=== PATIENT | female | born 1935 | race Caucasian/White ===

== ENCOUNTER 2019-10-10 13:07 | Observation (INO) | payer MEDICARE, OTHER ==
--- NOTE | 2019-10-10 14:03 | XR ---
EXAMINATION TYPE: XR chest 2V DATE OF EXAM: 10/10/2019 COMPARISON: None INDICATION: Syncope TECHNIQUE: Frontal and lateral views of the chest are obtained. FINDINGS: The heart size is normal. The pulmonary vasculature is upper limits of normal. There may be some subtle blunting of the left costophrenic angle. Correlate for some subsegmental ate lectasis. Suspicious consolidation is not otherwise evident. IMPRESSION: 1. Minimal atelectasis may be at the left costophrenic angle.
--- NOTE | 2019-10-10 14:10 | CT ---
EXAMINATION TYPE: CT brain [facility] [place] [facility] DATE OF EXAM: 10/10/2019 COMPARISON: None HISTORY: Fall today with injury CT DLP: 1543 mGycm, Automated exposure control for dose reduction was used. CONTRAST: Patient injected with 0 mL of Isovue 300. CT of the brain is performed utilizing 3 mm thick sections through the posterior fossa and 3 mm thick sections through the remaining calvarium. Study is performed within 24 hours of arrival to the hospital. No abnormal hyperdensity is present to suggest an acute intracranial hemorrhage. No mass lesion is evident. No acute infarcts are evident. There is periventricular white matter hypodensity, likely on the basi s of chronic white matter ischemic changes. Ventricles and sulci are prominent for the patient age. Paranasal sinuses and mastoid air cells within the [id number] are clear. Nasal bone fracture or no tably on the right is not excluded. Correlate with location of the patient's pain. No additional area s suspicious for fracture is evident. Left septal deviation is noted. Some mild soft tissue swelling is present over the frontal region. IMPRESSIONS: 1. Atrophy with periventricular white matter ischemic changes. CT cervical spine. COMPARISON: None CT of the cervical spine is performed in the axial plane at 2 mm thick sections. Reconstructed image s in the coronal, and sagittal plane are reviewed on the computer. No acute fractures are evident. Very minimal grade 1 spondylolisthesis of C2 anteriorly on C3 may be present. There is a cervical kyp hosis centered at approximately C3-4. Loss of disc height is noted C3-4 C5-6 C6-7. Milder disc height loss is present C4-5 C7-T1 Vertebral body heights are preserved. No spinal canal stenosis is evident. Uncovertebral joint hypertrophy is contributing to moderate bilateral foraminal stenosis. Left forami nal stenosis from uncovertebral joint hypertrophy is present C5-6. Mild to moderate bilateral foramin al narrowing is present C6-7. IMPRESSIONS: 1. Degenerative disc changes cervical spine. 2. Cervical kyphosis. 3. Minimal spondylolisthesis of C2 anteriorly on C3. 4. Foraminal stenosis due to uncovertebral joint hypertrophy discussed above.
[2019-10-10 14:25] LABS: Glucose,Whole Blood 320 mg/dL (75-99)
[2019-10-10 14:26] LABS: Albumin 3.9 g/dL (3.5-5.0); Calcium 9.1 mg/dL (8.4-10.2); Potassium 4.7 mmol/L (3.5-5.1); Total Bilirubin 0.5 mg/dL (0.2-1.3); Total Protein 7.4 g/dL (6.3-8.2)
[2019-10-10 14:32] LABS: Basophils # (A) 0.1 k/uL (0-0.2); Basophils % (A) 1 %; Eosinophils # (A) 0.2 k/uL (0-0.7); Eosinophils % (A) 2 %; HCT 41.3 % (34.0-46.0); Lymphocytes # (A) 2.2 k/uL (1.0-4.8); Lymphocytes % (A) 25 %; MCHC 31.6 g/dL (31.0-37.0); Mean Platelet Volume 8.6; Monocytes # (A) 0.6 k/uL (0-1.0); Monocytes % (A) 6 %; Neutrophils # (A) 5.5 k/uL (1.3-7.7); Neutrophils % (A) 63 %; Platelet Count 187 k/uL (150-450); RBC 4.21 m/uL (3.80-5.40); RDW 12.2 % (11.5-15.5); WBC 8.7 k/uL (3.8-10.6)
[2019-10-10 14:55] LABS: Partial Thromboplastin Time 20.2 sec (22.0-30.0)
--- NOTE | 2019-10-10 15:07 | ED ---
Fall HPI - General Chief Complaint: Fall Stated Complaint: Syncope Time Seen by Provider: 10/10/19 13:22 Source: EMS Mode of arrival: EMS - History of Present Illness Initial Comments: 84-year-old female presenting today for chief complaint of syncope, head injury. Patient states that she was in her doctor's office and went to go to use the restroom and next thing she knows she woke up on the ground history of passed out, Patient states she hit her head. Denies blood thinners, headache or neck pain, denies chest pain or SOB, or any unusual symptoms. Patient states it was a routine appointment. Patient denies LE swelling, hemoptysis or visual changes. Patient daughter who took patient to the doctors office, heard the fall and patient was able to unlock the door in a matter of minutes, daughter denies confused staets, seizure activity or noting incontinence. Patient upon arrival has no complaints. Patient appears well and is very talkative and smiley. - Related Data Home Medications Medication Instructions Recorded Confirmed Aspirin 81 mg PO DAILY 04/17/14 10/10/19 Metoprolol Tartrate [Lopressor] 50 mg PO BID 04/17/14 10/10/19 Lovastatin [Mevacor] 40 mg PO HS 04/23/14 10/10/19 Omeprazole [PriLOSEC] 20 mg PO AC-BRKFST 04/23/14 10/10/19 Ammonium Lactate Lotion 1 applic TOPICAL Q48H 10/10/19 10/10/19 [Lac-Hydrin 12% Lotion] Cholecalciferol [Vitamin D3 (25 5,000 unit PO DAILY 10/10/19 10/10/19 Mcg = 1000 Iu)] Cyanocobalamin (Vitamin B-12) 1,000 mcg PO DAILY 10/10/19 10/10/19 [Vitamin B-12] Docusate [Colace] 100 mg PO DAILY 10/10/19 10/10/19 Flecainide [Tambocor] 50 mg PO Q12HR 10/10/19 10/10/19 Gabapentin 600 mg PO BID 10/10/19 10/10/19 Glimepiride [Amaryl] 2 mg PO BID 10/10/19 10/10/19 Psyllium Husk (with Sugar) 10 ml PO Q48H 10/10/19 10/10/19 [Metamucil Powder] Sertraline HCl [Zoloft] 25 mg PO DAILY 10/10/19 10/10/19 busPIRone HCL [Buspar] 7.5 mg PO QAM 10/10/19 10/10/19 metFORMIN HCL ER [Glucophage Xr] 500 mg PO HS 10/10/19 10/10/19 Allergies Allergy/AdvReac Type Severity Reaction Status Date / Time No Known Allergies Allergy Verified 10/10/19 14:47 Review of Systems ROS Statement: Those systems with pertinent positive or pertinent negative responses have been documented in the HPI. ROS Other: All systems not noted in ROS Statement are negative. Past Medical History Past Medical History: Diabetes Mellitus, Deep Vein Thrombosis (DVT), Hypertension Additional Past Medical History / Comment(s): BRAULIO LEGS NEUROPATHY, STATES PREVIOUS HX OF DVT BRAULIO LEGS History of Any Multi-Drug Resistant Organisms: None Reported Past Surgical History: Back Surgery, Hysterectomy Past Anesthesia/Blood Transfusion Reactions: No Reported Reaction Past Psychological History: Anxiety Smoking Status: Never smoker Past Alcohol Use History: None Reported Past Drug Use History: None Reported General Exam - General Exam Comments Initial Comments: General: The patient is awake and alert, in no distress Eye: +3 mm pupils are equal, round and reactive to light, extra-ocular movements are intact. No nystagmus. There is normal conjunctiva bilaterally. No signs of icterus. Ears, nose, mouth and throat: There are moist mucous membranes and no oral lesions. No racoon or kaminski sign. Neck: The neck is supple, there is no tenderness or JVD. N Cardiovascular: There is a regular rate and rhythm. No murmur, rub or gallop is appreciated. Respiratory: Lungs are clear to auscultation, respirations are non-labored, breath sounds are equal. No wheezes, stridor, rales, or rhonchi. Gastrointestinal: Soft, non-distended, non-tender abdomen without masses or organomegaly noted. There is no rebound or guarding present. No CVA tenderness. Musculoskeletal: Normal ROM, no tenderness. Strength 5/5. Sensation intact. Radial and DP pulses equal bilaterally 2+. Neurological: A&O x 3. CN II-XII intact, There are no obvious motor or sensory deficits. Coordination appears grossly intact. Speech is normal. Skin: Skin is warm and dry and no rashes. Frontal hematoma, no laceration. NO LE edema. No creptius to palpation of scalp. Psychiatric: Cooperative, appropriate mood & affect, normal judgment. Limitations: no limitations Course Vital Signs 10/10/19 10/10/19 10/10/19 13:17 15:26 16:00 Temperature 98.7 F 98.2 F Pulse Rate 70 68 68 Respiratory 18 96 H 20 Rate Blood Pressure 149/63 155/80 O2 Sat by Pulse 95 95 95 Oximetry 10/10/19 17:11 Temperature Pulse Rate 75 Respiratory 20 Rate Blood Pressure 150/67 O2 Sat by Pulse 98 Oximetry Medical Decision Making - Medical Decision Making Ventricular rate 72 bpm, NM interval 218 ms, QRS [id number] ms, QT/QTC 400/438 milliseconds. This is normal sinus with first-degree AV block noted. Low voltage QRS. No ST elevation or depression is noted. EKG personally interpreted and reviewed by mental any provider 84-year-old female presenting after a syncopal episodes and no complaints. Patient denies any abnormal symptoms prior to the syncopal episode. Patient has no abnormal focalizing examination findings aside from a hematoma on the frontal aspect of scalp. CT revealed no acute hemorrhage nor skull fracture. C-spine revealed degenerative changes no other acute findings. Patient glucose elevated otherwise labs stable. No significant derangements. EKG no acute findings, CXR no significant findings. Patient will admitted for further evaluation of syncope. Patient agreeable to admission. Discussed case wt DR Weeks who was agreeable to care plan. - Lab Data Result diagrams: 10/10/19 13:58 10/10/19 13:58 Lab Results 10/10/19 10/10/19 10/10/19 Range/Units 13:58 13:58 13:58 WBC 8.7 (3.8-10.6) k/uL RBC 4.21 (3.80-5.40) m/uL Hgb 13.0 (11.4-16.0) gm/dL Hct 41.3 (34.0-46.0) % MCV 98.0 (80.0-100.0) fL MCH 31.0 (25.0-35.0) pg MCHC 31.6 (31.0-37.0) g/dL RDW 12.2 (11.5-15.5) % Plt Count 187 (150-450) k/uL Neutrophils % 63 % Lymphocytes % 25 % Monocytes % 6 % Eosinophils % 2 % Basophils % 1 % Neutrophils # 5.5 (1.3-7.7) k/uL Lymphocytes # 2.2 (1.0-4.8) k/uL Monocytes # 0.6 (0-1.0) k/uL Eosinophils # 0.2 (0-0.7) k/uL Basophils # 0.1 (0-0.2) k/uL PT (9.0-12.0) sec INR (<1.2) APTT (22.0-30.0) sec Sodium 134 L (137-145) mmol/L Potassium 4.7 (3.5-5.1) mmol/L Chloride 98 (98-107) mmol/L Carbon Dioxide 31 H (22-30) mmol/L Anion Gap 5 mmol/L BUN 20 H (7-17) mg/dL Creatinine 0.89 (0.52-1.04) mg/dL Est GFR (CKD-EPI)AfAm 69 (>60 ml/min/1.73 sqM) Est GFR (CKD-EPI)NonAf 60 (>60 ml/min/1.73 sqM) Glucose 321 H (74-99) mg/dL POC Glucose (mg/dL) (75-99) mg/dL POC Glu Continuous Absorption Process Operator ID Calcium 9.1 (8.4-10.2) mg/dL Total Bilirubin 0.5 (0.2-1.3) mg/dL AST 29 (14-36) U/L ALT 19 (4-34) U/L Alkaline Phosphatase 86 (38-126) U/L Troponin I <0.012 (0.000-0.034) ng/mL Total Protein 7.4 (6.3-8.2) g/dL Albumin 3.9 (3.5-5.0) g/dL 10/10/19 10/10/19 Range/Units 14:01 14:12 WBC (3.8-10.6) k/uL RBC (3.80-5.40) m/uL Hgb (11.4-16.0) gm/dL Hct (34.0-46.0) % MCV (80.0-100.0) fL MCH (25.0-35.0) pg MCHC (31.0-37.0) g/dL RDW (11.5-15.5) % Plt Count (150-450) k/uL Neutrophils % % Lymphocytes % % Monocytes % % Eosinophils % % Basophils % % Neutrophils # (1.3-7.7) k/uL Lymphocytes # (1.0-4.8) k/uL Monocytes # (0-1.0) k/uL Eosinophils # (0-0.7) k/uL Basophils # (0-0.2) k/uL PT 10.0 (9.0-12.0) sec INR 1.0 (<1.2) APTT 20.2 L (22.0-30.0) sec Sodium (137-145) mmol/L Potassium (3.5-5.1) mmol/L Chloride (98-107) mmol/L Carbon Dioxide (22-30) mmol/L Anion Gap mmol/L BUN (7-17) mg/dL Creatinine (0.52-1.04) mg/dL Est GFR (CKD-EPI)AfAm (>60 ml/min/1.73 sqM) Est GFR (CKD-EPI)NonAf (>60 ml/min/1.73 sqM) Glucose (74-99) mg/dL POC Glucose (mg/dL) 320 H (75-99) mg/dL POC Glu Continuous Absorption Process Operator ID Sakshi Longo Calcium (8.4-10.2) mg/dL Total Bilirubin (0.2-1.3) mg/dL AST (14-36) U/L ALT (4-34) U/L Alkaline Phosphatase (38-126) U/L Troponin I (0.000-0.034) ng/mL Total Protein (6.3-8.2) g/dL Albumin (3.5-5.0) g/dL Disposition Clinical Impression: Fall, Scalp hematoma, Syncope Disposition: ADMITTED IP TO THIS [facility] Condition: Stable Is patient prescribed a controlled substance at d/c from ED?: No Time of Disposition: 15:06 Decision to Admit Reason: Admit from EC Decision Date: 10/10/19 Decision Time: 15:07
[2019-10-10] MEDS ORDERED: INSULIN REGULAR 100 UNIT/ML VIAL SQ ONE (15:33)
[2019-10-10] MEDS ORDERED: NALOXONE 0.4 MG/ML 1 ML VIAL IV PRN (16:16)
[2019-10-10] MEDS: SODIUM CHLORIDE 0.9% 1,000 ML IV SCH (17:08)
[2019-10-10 18:39] LABS: Glucose,Whole Blood 209 mg/dL (75-99)
[2019-10-10 19:44] LABS: Glucose,Whole Blood 179 mg/dL (75-99)
[2019-10-10] MEDS: METOPROLOL TARTRATE 50 MG TAB PO SCH (21:43)
[2019-10-10] MEDS: ATORVASTATIN 10 MG TAB PO SCH (21:43)
[2019-10-10] MEDS: traZODone HCL 50 MG TAB PO PRN (21:43)
[2019-10-10] MEDS: GLIMEPIRIDE 2 MG TAB PO SCH (21:43)
[2019-10-10] MEDS: FLECAINIDE 50 MG TAB PO SCH (21:43)
[2019-10-11 03:24] LABS: Cholesterol 238 mg/dL (<200); HDL Cholesterol 40 mg/dL (40-60)
[2019-10-11 03:33] LABS: Triglycerides 551 mg/dL (<150)
[2019-10-11] MEDS: SODIUM CHLORIDE 0.9% 1,000 ML IV SCH ×2 (04:15→16:19)
[2019-10-11 06:46] LABS: Glucose,Whole Blood 173 mg/dL (75-99)
[2019-10-11] MEDS: DOCUSATE 100 MG CAP PO SCH (08:30)
[2019-10-11] MEDS: METOPROLOL TARTRATE 50 MG TAB PO SCH ×2 (08:30→19:52)
[2019-10-11] MEDS: ASPIRIN 81 MG PO SCH (08:30)
[2019-10-11] MEDS: FLECAINIDE 50 MG TAB PO SCH ×2 (08:30→19:53)
[2019-10-11] MEDS: GLIMEPIRIDE 2 MG TAB PO SCH ×2 (08:31→19:53)
[2019-10-11] MEDS: LISINOPRIL 5 MG TAB PO SCH (08:31)
--- NOTE | 2019-10-11 09:24 | US ---
EXAMINATION TYPE: US carotid duplex BILAT DATE OF EXAM: 10/11/2019 COMPARISON: NONE CLINICAL HISTORY: syncope. Syncope, confusion EXAM MEASUREMENTS: RIGHT: Peak Systolic Velocity (PSV) cm/sec ----- Right CCA: 77.6 ----- Right ICA: 89.8 ----- Right ECA: 74.1 ICA/CCA ratio: 1.2 RIGHT: End Diastole cm/sec ----- Right CCA: 8.4 ----- Right ICA: 13.9 ----- Right ECA: 0.0 LEFT: Peak Systolic Velocity (PSV) cm/sec ----- Left CCA: 86.2 ----- Left ICA: 80.8 ----- Left ECA: 96.6 ICA/CCA ratio: 0.9 LEFT: End Diastole cm/sec ----- Left CCA: 8.3 ----- Left ICA: 15.3 ----- Left ECA: 0.0 VERTEBRALS (direction of flow): Right Vertebral: Antegrade Left Vertebral: Antegrade Rhythm: Normal No elevated velocities, no significant stenosis. IMPRESSION: I DO NOT SEE EVIDENCE OF A HEMODYNAMICALLY SIGNIFICANT STENOSIS IN EITHER CAROTID SYSTEM. Criteria for Assigning % of Stenosis / Diameter reduction (Estimation based on the indirect measurements of the internal carotid artery velocities (ICA PSV). 1. Normal (no stenosis)=ICA PSV < 125 cm/s: ratio < 2.0: ICA EDV<40 cm/s. 2. Less than 50% stenosis=ICA PSV < 125 cm/s: ratio < 2.0: ICA EDV<40 cm/s. 3. 50 to 69% stenosis=ICA PSV of 125 to 230 cm/s: ration 2.0 ? 4.0: ICA EDV 40-100 cm/s. 4. Greater than 70% stenosis to near occlusion= ICA PSV > 230 cm/s: ratio > 4.0: ICA EDV > 100 cm/s. 5. Near occlusion= ICA PSV velocities may be low or undetectable: variable ratio and ICA EDV. 6. Total occlusion=unable to detect flow.
--- NOTE | 2019-10-11 11:29 | P.CRDCN ---
History of Present Illness History of present illness: HISTORY OF PRESENTING ILLNESS This is a pleasant 84-year-old female past medical history significant for hypertension, dyslipidemia, diabetes mellitus, nonsustained ventricular tac hycardia maintained on flecainide, mild nonobstructive CAD and obesity. She follows in the office with Dr. Winter. We have been asked to see in consultation for syncope. The patient is confused at baseline and unable to recall the events that occurred yesterday information is obtained from the medical record and the nursing staff. Apparently the patient was at her physician's office yesterday and she went into use the restroom. Her daughter was standing outside the restroom and heard her fall. They were able to come in to the bathroom and she was unresponsive. She did spontaneously wake up. She did not have any chest pain, dizziness, palpitations, shortness of breath or dizziness that was verbalized at that time. EKG on arrival reveals sinus mechanism with first- degree AV block heart rate of 72. Telemetry tracings unremarkable with no acute arrhythmias noted. CT of the head reveals atrophy with periventricular white matter ischemic changes in no acute process. Bilateral carotid Doppler with no evidence of hemodynamically significant stenosis bilaterally. Laboratory data reviewed, cardiac enzymes negative 3, CBC unremarkable, sodium 134, potassium 4.7, creatinine 0.89, triglycerides 551. Currently maintained on aspirin 81 mg daily, metoprolol 50 mg twice a day, flecainide 50 mg twice a day and lovastatin 40 mg at bedtime. REVIEW OF SYSTEMS At the time of my exam: CONSTITUTIONAL: Denies fever or chills. CARDIOVASCULAR: Denies chest pain, shortness of breath, orthopnea, PND or palpitations. RESPIRATORY: Denies cough. GASTROINTESTINAL: Denies abdominal pain, diarrhea, constipation, nausea or vomiting. MUSCULOSKELETAL: Denies myalgias. NEUROLOGIC: Denies numbness, tingling or weakness. ENDOCRINE: Denies fatigue, weight change, polydipsia or polyurina. GENITOURINARY: Denies burning, hematuria or urgency with micturation. HEMATOLOGIC: Denies history of anemia or bleeding. PHYSICAL EXAMINATION Blood pressure 152/79 heart rate 75 afebrile and maintaining oxygen saturation on room air. CONSTITUTIONAL: No apparent distress. HEENT: Head is normocephalic. Pupils are equal, round. Sclerae anicteric. Mucous membranes of the mouth are moist. No JVD. No carotid bruit. CHEST EXAMINATION: Lungs are clear to auscultation. No chest wall tenderness is noted on palpation or with deep breathing. HEART EXAMINATION: Regular rate and rhythm. S1, S2 heard. No murmurs, gallops or rub. ABDOMEN: Soft, nontender. Positive bowel sounds. EXTREMITIES: 2+ peripheral pulses, no lower extremity edema and no calf tenderness. NEUROLOGIC EXAMINATION: Patient is awake, alert and oriented to self. ASSESSMENT Syncope History of ventricular tachycardia Hypertension Dyslipidemia Diabetes mellitus PLAN An acute coronary event has been ruled out. Obtain 2-D echocardiogram and Doppler study to assess cardiac structure and function. Initiate lisinopril 5 mg daily for optimal blood pressure control. Continue Lopressor and flecainide as previously ordered. Continue to monitor on telemetry for another 24 hours. Further recommendations to follow based upon clinical course. Thank you kindly for this consultation. Nurse Practitioner note has been reviewed, I agree with a documented findings and plan of care. Patient was seen and examined. Past Medical History Past Medical History: Diabetes Mellitus, Deep Vein Thrombosis (DVT), Hypertension Additional Past Medical History / Comment(s): BRAULIO LEGS NEUROPATHY, STATES PREVIOUS HX OF DVT BRAULIO LEGS History of Any Multi-Drug Resistant Organisms: None Reported Past Surgical History: Back Surgery, Hysterectomy Past Anesthesia/Blood Transfusion Reactions: No Reported Reaction Past Psychological History: No Psychological Hx Reported Smoking Status: Never smoker Past Alcohol Use History: None Reported Past Drug Use History: None Reported - Past Family History Father Family Medical History: Myocardial Infarction ([place]) Mother History Unknown: Yes Medications and Allergies Home Medications Medication Instructions Recorded Confirmed Type Aspirin 81 mg PO DAILY 04/17/14 10/10/19 History Metoprolol Tartrate [Lopressor] 50 mg PO BID 04/17/14 10/10/19 History Lovastatin [Mevacor] 40 mg PO HS 04/23/14 10/10/19 History Omeprazole [PriLOSEC] 20 mg PO AC-BRKFST 04/23/14 10/10/19 History Ammonium Lactate Lotion 1 applic TOPICAL Q48H 10/10/19 10/10/19 History [Lac-Hydrin 12% Lotion] Cholecalciferol [Vitamin D3 (25 5,000 unit PO DAILY 10/10/19 10/10/19 History Mcg = 1000 Iu)] Cyanocobalamin (Vitamin B-12) 1,000 mcg PO DAILY 10/10/19 10/10/19 History [Vitamin B-12] Docusate [Colace] 100 mg PO DAILY 10/10/19 10/10/19 History Flecainide [Tambocor] 50 mg PO Q12HR 10/10/19 10/10/19 History Gabapentin 600 mg PO BID 10/10/19 10/10/19 History Glimepiride [Amaryl] 2 mg PO BID 10/10/19 10/10/19 History Psyllium Husk (with Sugar) 10 ml PO Q48H 10/10/19 10/10/19 History [Metamucil Powder] Sertraline HCl [Zoloft] 25 mg PO DAILY 10/10/19 10/10/19 History busPIRone HCL [Buspar] 7.5 mg PO QAM 10/10/19 10/10/19 History metFORMIN HCL ER [Glucophage Xr] 500 mg PO HS 10/10/19 10/10/19 History Allergies Allergy/AdvReac Type Severity Reaction Status Date / Time No Known Allergies Allergy Verified 10/10/19 14:47 Physical Exam Vitals: Vital Signs Temp Pulse Pulse Resp BP BP Pulse Ox 10/11/19 07:20 98.0 F 75 18 152/79 92 L 10/11/19 04:00 98.2 F 72 18 176/77 96 10/11/19 03:40 69 18 10/11/19 00:00 69 18 10/10/19 23:44 69 18 145/73 98 10/10/19 20:00 77 17 10/10/19 19:27 97.5 F L 77 17 158/70 97 10/10/19 18:45 98.4 F 42 L 15 155/78 98 10/10/19 17:11 75 20 150/67 98 10/10/19 16:00 98.2 F 68 20 155/80 95 10/10/19 15:26 68 96 H 95 10/10/19 13:17 98.7 F 70 18 149/63 95 Intake and Output 10/10/19 10/11/19 10/11/19 22:59 06:59 14:59 Other: Voiding Method Toilet Toilet Diaper Diaper # Voids 1 3 # Bowel Movements 1 Weight 88.904 kg 91 kg Results 10/10/19 13:58 10/10/19 13:58 Cardiac Enzymes 10/10/19 10/10/19 10/10/19 Range/Units 13:58 13:58 20:00 AST 29 (14-36) U/L Troponin I <0.012 <0.012 (0.000-0.034) ng/mL 10/11/19 Range/Units 01:34 AST (14-36) U/L Troponin I <0.012 (0.000-0.034) ng/mL Coagulation 10/10/19 Range/Units 14:12 PT 10.0 (9.0-12.0) sec APTT 20.2 L (22.0-30.0) sec Lipids 10/10/19 Range/Units 13:58 Triglycerides 551 H (<150) mg/dL Cholesterol 238 H (<200) mg/dL HDL Cholesterol 40 (40-60) mg/dL CBC 10/10/19 Range/Units 13:58 WBC 8.7 (3.8-10.6) k/uL RBC 4.21 (3.80-5.40) m/uL Hgb 13.0 (11.4-16.0) gm/dL Hct 41.3 (34.0-46.0) % Plt Count 187 (150-450) k/uL Comprehensive Metabolic Panel 10/10/19 Range/Units 13:58 Sodium 134 L (137-145) mmol/L Potassium 4.7 (3.5-5.1) mmol/L Chloride 98 (98-107) mmol/L Carbon Dioxide 31 H (22-30) mmol/L BUN 20 H (7-17) mg/dL Creatinine 0.89 (0.52-1.04) mg/dL Glucose 321 H (74-99) mg/dL Calcium 9.1 (8.4-10.2) mg/dL AST 29 (14-36) U/L ALT 19 (4-34) U/L Alkaline Phosphatase 86 (38-126) U/L Total Protein 7.4 (6.3-8.2) g/dL Albumin 3.9 (3.5-5.0) g/dL Current Medications Generic Name Dose Route Start Last Admin Trade Name Freq PRN Reason Stop Dose Admin Aspirin 81 mg 10/11/19 09:00 Aspirin PO DAILY [facility] Atorvastatin Calcium 10 mg 10/10/19 21:00 10/10/19 21:43 Lipitor PO 10 mg HS JOSÉ MIGUEL Administration Docusate Sodium 100 mg 10/11/19 09:00 Colace PO DAILY [facility] Flecainide Acetate 50 mg 10/10/19 21:00 10/10/19 21:43 Tambocor PO 50 mg Q12HR JOSÉ MIGUEL Administration Glimepiride 2 mg 10/10/19 21:00 10/10/19 21:43 Amaryl PO 2 mg BID JOSÉ MIGUEL Administration Sodium Chloride 1,000 mls @ 75 mls/hr 10/10/19 15:45 10/11/19 04:15 Saline 0.9% IV Not Given .[id number] [facility] Lisinopril 5 mg 10/11/19 09:00 Zestril PO DAILY [facility] Metoprolol Tartrate 50 mg 10/10/19 21:00 10/10/19 21:43 Lopressor PO 50 mg BID JOSÉ MIGUEL Administration Naloxone HCl 0.2 mg 10/10/19 16:16 Narcan IV Q2M PRN Opioid Reversal Trazodone HCl 50 mg 10/10/19 21:04 10/10/19 21:43 Desyrel PO 50 mg HS PRN Administration SLEEP Intake and Output 10/10/19 10/11/19 10/11/19 22:59 06:59 14:59 Other: Voiding Method Toilet Toilet Diaper Diaper # Voids 1 3 # Bowel Movements 1 Weight 88.904 kg 91 kg 10/10/19 13:58 10/10/19 13:58
[2019-10-11 11:44] LABS: Glucose,Whole Blood 362 mg/dL (75-99)
[2019-10-11] MEDS: INSULIN ASPART (NovoLOG) 100 UNIT/ML VIAL SQ SCH ×3 (12:03→19:53)
--- NOTE | 2019-10-11 14:44 | ECHOF ---
Referral Reason:syncope MEASUREMENTS -------- HEIGHT: 170.2 cm WEIGHT: 90.7 kg BP: RVIDd: 3.7 cm (< 3.3) IVSd: 1.3 cm (0.6 - 1.1) LVIDd: 3.9 cm (3.9 - 5.3) LVPWd: 1.8 cm (0.6 - 1.1) IVSs: 1.6 cm LVIDs: 3.2 cm LVPWs: 1.0 cm LA Diam: 3.5 cm (2.7 - 3.8) LAESV Index (A-L): 25.99 ml/m Ao Diam: 3.5 cm (2.0 - 3.7) AV Cusp: 1.5 cm (1.5 - 2.6) LA Diam: 4.3 cm (2.7 - 3.8) MV EXCURSION: 18.395 mm (> 18.000) MV EF SLOPE: 68 mm/s (70 - 150) EPSS: 0.5 cm MV E Amos: 0.63 m/s MV DecT: 304 ms MV A Amos: 1.03 m/s MV E/A Ratio: 0.61 RAP: 5.00 mmHg RVSP: 40.86 mmHg FINDINGS -------- Sinus rhythm. This was a technically good study. The left ventricular size is normal. There is mild concentric left ventricular hypertrophy. Overa ll left ventricular systolic function is normal with, an EF between 55 - 60 %. The right ventricle is normal in size. The left atrial size is normal. The right atrial size is normal. There is mild aortic valve sclerosis without stenosis. There is no evidence of aortic regurgitation . Mild mitral regurgitation is present. Mild tricuspid regurgitation present. Right ventricular systolic pressure is normal at < 35 mmHg. There is mild pulmonary hypertension. There is no pulmonic regurgitation present. The aortic root size is normal. There is no pericardial effusion. CONCLUSIONS -------- 1. Sinus rhythm. 2. This was a technically good study. 3. The left ventricular size is normal. 4. Overall left ventricular systolic function is normal with, an EF between 55 - 60 %. 5. The right ventricle is normal in size. 6. The left atrial size is normal. 7. The right atrial size is normal. 8. There is mild aortic valve sclerosis without stenosis. 9. Mild mitral regurgitation is present. 10. Right ventricular systolic pressure is normal at < 35 mmHg. 11. There is no pulmonic regurgitation present. 12. The aortic root size is normal. 13. There is no pericardial effusion. MACHINE SETUP OPERATOR: Pretty Hall RDCS
[2019-10-11 15:26] LABS: Appearance,Urine Turbid (Clear); Bacteria,Urine Occasional /hpf; Bilirubin,Urine Negative (Negative); Blood,Urine Small (Negative); Color,Urine Yellow; Glucose,Urine (UA) 4+ (Negative); Ketones,Urine Trace (Negative); Leukocyte Esterase,Urine Negative (Negative); Mucus,Urine Few /hpf; Nitrite,Urine Positive (Negative); Protein,Urine Trace (Negative); RBC,Urine 8 /hpf (0-5); Squamous Epithelial Cell,Urine 1 /hpf (0-4); Urobilinogen,Urine <2.0 mg/dL (<2.0); WBC,Urine >182 /hpf (0-5)
[2019-10-11 16:38] LABS: Glucose,Whole Blood 215 mg/dL (75-99)
[2019-10-11 19:49] LABS: Glucose,Whole Blood 240 mg/dL (75-99)
[2019-10-11] MEDS: SULFAMETHOX-TMP 800-160MG 1 EACH TAB PO SCH (19:52)
[2019-10-11] MEDS: ATORVASTATIN 10 MG TAB PO SCH (19:53)
[2019-10-11] MEDS: traZODone HCL 50 MG TAB PO PRN (20:16)
--- NOTE | 2019-10-12 00:34 | HP ---
HISTORY AND PHYSICAL CHIEF COMPLAINT: Syncopal episode. HISTORY OF PRESENT ILLNESS: This is apparently another admission for this 84-year-old white female. She cannot give a history. She apparently had a syncopal event. She does not remember it and she does not remember feeling unusual before it started or having any chest pain, diaphoresis, shortness of breath, pain, confusion, focal neurologic deficits, etc. She apparently has a history of cardiac disease with ventricular tachycardia. She denies any shortness of breath, orthopnea, PND, etc. REVIEW OF SYSTEMS: Review of systems cannot be reliably obtained. Past medical history, family history and personal and social histories similarly are not reliably obtained. She does have a history of diabetes. She has a history of hyperlipidemia with triglycerides of 551. She is not allergic to any medication. She has had a hysterectomy. Other surgeries are not known. MEDICATIONS: Medications include BuSpar, vitamin D3, gabapentin, Prilosec, Zoloft, aspirin, metformin, Amaryl, lovastatin, Lopressor, Flecainide. She does not does not smoke or drink. PHYSICAL EXAMINATION: Blood pressure is 142/73 with a pulse of 86 and regular, respirations of 20 and she is afebrile. In general, she appeared to be well developed, well nourished, no acute distress. Skin color is normal. Skin is warm, dry. Lymph nodes not enlarged. Head, ears, eyes, nose, mouth and throat were normal and carotids normal. Neck veins not distended. Chest is clear. Cardiac exam demonstrated normal sinus rhythm with no murmurs or extra sounds. The abdomen was soft and nontender and there is no visceromegaly or masses. Bowel sounds present. Extremities are normal and neurologically she was intact except she had some difficulty answering questions and it was assumed that she has dementia. IMPRESSION: She is admitted to the hospital with diagnoses of: 1. Syncope, etiology unknown. 2. History of ventricular tachycardia. 3. Diabetes. 4. Dementia. 5. Urinary tract infection. PLAN: 1. Bed rest. 2. IV fluids. 3. Telemetry. 4. Consult Cardiology. 5. Monitor blood sugars as well as blood pressure. MMODL / IJN: [id number] /
--- NOTE | 2019-10-12 01:04 | PN ---
PROGRESS NOTE CHIEF COMPLAINT: Syncopal episode. HISTORY OF PRESENT ILLNESS: This lady is having no further problems at this time. She remains slightly confused. She does not have any chest pain, arrhythmias, fluctuations of her blood pressure, etc. She does have a urinary tract infection according to the lab. Blood sugars are also elevated. PHYSICAL EXAMINATION: Chest is clear. The cardiac exam is normal sinus rhythm. Abdomen is soft, nontender. Extremities are normal. IMPRESSION: 1. Syncope, etiology unknown. 2. History of ventricular tachycardia. 3. Uncontrolled diabetes. 4. Urinary tract infection. PLAN: 1. Bactrim DS for urinary tract infection. 2. Await any further recommendations from Cardiology. 3. Increase activity. MMODL / IJN: [id number] /
[2019-10-12 06:37] LABS: Glucose,Whole Blood 175 mg/dL (75-99)
[2019-10-12 07:45] VITALS: RESP 18
[2019-10-12] MEDS: SULFAMETHOX-TMP 800-160MG 1 EACH TAB PO SCH (08:05)
[2019-10-12] MEDS: INSULIN ASPART (NovoLOG) 100 UNIT/ML VIAL SQ SCH ×2 (08:05→11:55)
[2019-10-12] MEDS: GLIMEPIRIDE 2 MG TAB PO SCH (08:05)
[2019-10-12] MEDS: DOCUSATE 100 MG CAP PO SCH (08:05)
[2019-10-12] MEDS: METOPROLOL TARTRATE 50 MG TAB PO SCH (08:06)
[2019-10-12] MEDS: LISINOPRIL 5 MG TAB PO SCH (08:06)
[2019-10-12] MEDS: ASPIRIN 81 MG PO SCH (08:06)
[2019-10-12] MEDS: FLECAINIDE 50 MG TAB PO SCH (08:06)
--- NOTE | 2019-10-12 08:53 | PN ---
PROGRESS NOTE Mrs Suh is in sinus rhythm, resting comfortably. She has no chest pain or shortness of breath. Vitals are stable. No further episodes of syncope or near syncope. No arrhythmia on the monitor. No JVD or carotid bruit. S1-S2 heard normally. Short systolic murmur noted. Lungs revealed decent air entry. Abdomen and lower extremity exam are unchanged. Plan is to increase activity and discharge her and she can be seen as an outpatient in the next 2 weeks. MMODL / IJN: [id number] /
[2019-10-12] MEDS: SODIUM CHLORIDE 0.9% 1,000 ML IV SCH (10:19)
[2019-10-12 11:02] VITALS: BP 160/84; PULSE 69; TEMP 97.8
[2019-10-12 11:48] LABS: Glucose,Whole Blood 248 mg/dL (75-99)
--- NOTE | 2019-10-13 05:21 | DS ---
DISCHARGE SUMMARY CHIEF COMPLAINT: Syncope. HISTORY OF PRESENT ILLNESS AND PHYSICAL EXAM: Details of this lady's history and physical can be found in the initial workup. COURSE IN THE HOSPITAL: After admission, she was placed at bedrest, started on intravenous fluids and placed on telemetry. She was seen by Cardiology. Her vital signs remain stable. She did not develop any arrhythmias. She was evaluated by Cardiology and they felt that she could be discharged on the . She will go home on her usual activity, diet and medication and will be followed up either by her own physician or me. She will also follow up with Cardiology. FINAL DIAGNOSES: This will go on the face sheet as well. 1. Syncopal episode, etiology unknown. 2. History of cardiac arrhythmia with ventricular tachycardia. 3. Dementia. OPERATIONS: None. CONSULTATIONS: Cardiology. She is improved. MMBENIGNOL / THUYN: [id number] /
[2019-10-13 11:42] LABS: Hemoglobin A1C 10.5 % (4.0-6.0)
== END 2019-10-12 13:08 | disposition home or self-care (01) ==
LOC: EC 13:07 → 1SOBS 15:55
PROVIDERS: ADMIT Family Medicine; ATTEND Family Medicine
DX: R55 Syncope and collapse (principal); N39.0 Urinary tract infection, site not specified; E11.65 Type 2 diabetes mellitus with hyperglycemia; F03.90 Unspecified dementia, unspecified severity, without behavioral disturbance, psychotic disturbance, mood disturbance, and anxiety; S00.03XA Contusion of scalp, initial encounter; I47.2 Ventricular tachycardia; I44.0 Atrioventricular block, first degree; I25.10 Atherosclerotic heart disease of native coronary artery without angina pectoris; I10 Essential (primary) hypertension; I67.82 Cerebral ischemia; E11.42 Type 2 diabetes mellitus with diabetic polyneuropathy; E78.5 Hyperlipidemia, unspecified; E66.9 Obesity, unspecified; M47.812 Spondylosis without myelopathy or radiculopathy, cervical region; F41.9 Anxiety disorder, unspecified; R01.1 Cardiac murmur, unspecified; Z86.718 Personal history of other venous thrombosis and embolism; Z90.710 Acquired absence of both cervix and uterus; Z98.890 Other specified postprocedural states; Z79.82 Long term (current) use of aspirin; Z79.84 Long term (current) use of oral hypoglycemic drugs; Z79.899 Other long term (current) drug therapy; Z82.49 Family history of ischemic heart disease and other diseases of the circulatory system; W19.XXXA Unspecified fall, initial encounter; Y92.531 Health care provider office as the place of occurrence of the external cause
CPT/HCPCS: 93005 ×2; 99285; 36415; 93306; 80061; 80053; 84484 ×2; 85025; 85610; 85730; 81001; 87086; 87077; 87186; 83036; 71046; 93880; 72125; 70450; G0378 ×2